=== PATIENT | female | born 1985 | race Hispanic/Latino ===

== ENCOUNTER 2018-09-26 14:58 | Emergency (ER) | payer SELFPAY ==
[~2018-09-26 14:58] MED LIST: CIPR-278 PO
[2018-09-26] MEDS ORDERED: TETANUS/DIPHTHERIA TOXOID [ADULT] 0.5 ML VIAL IM ONE (15:36)
== END 2018-09-26 15:53 | disposition home or self-care (01) ==
LOC: EDH 14:58
DX: S91.331A Puncture wound without foreign body, right foot, initial encounter (principal); E78.5 Hyperlipidemia, unspecified; Z90.49 Acquired absence of other specified parts of digestive tract; Z87.891 Personal history of nicotine dependence; W26.8XXA Contact with other sharp object(s), not elsewhere classified, initial encounter; Y93.89 Activity, other specified; Y92.89 Other specified places as the place of occurrence of the external cause; Y99.8 Other external cause status
CPT/HCPCS: 73630; 90471; 90714

== ENCOUNTER 2024-10-13 12:35 | Emergency (ER) | payer SELFPAY ==
[~2024-10-13] VITALS: Ht 157.5 cm; Wt 133.8 kg
--- NOTE | 2024-10-13 12:45 | NUR ---
PATIENT TO CT ACCOMPANIED BY PRIMARY NURSE
--- NOTE | 2024-10-13 12:55 | NUR ---
PATIENT BACK FROM CT; ACCOMPANIED BY PRIMARY NURSE
[2024-10-13 13:12] LABS: BASOPHILS # (AUTO) 0.02 K/uL (0.00-0.20); BASOPHILS % (AUTO) 0.3 % (0.0-5.0); EOSINOPHILS # (AUTO) 0.05 K/uL (0.00-0.70); EOSINOPHILS % (AUTO) 0.7 % (0.0-8.0); HEMATOCRIT 40.8 % (36-48); IMMATURE GRANULOCYTE ABSOLUTE 0.05 K/uL (0-1); LYMPHOCYTES # (AUTO) 2.8 K/uL (1.0-4.8); LYMPHOCYTES % (AUTO) 40.6 % (21.0-51.0); MEAN CORPUSCULAR HEMOGLOBIN 24.9 pg (27.0-33.0); MEAN CORPUSCULAR HGB CONC 31.9 g/dL (32.0-36.0); MEAN CORPUSCULAR VOLUME 78.2 fL (79-99); MONOCYTES # (AUTO) 0.4 K/uL (0.1-1.0); MONOCYTES % (AUTO) 6.1 % (3.0-13.0); NEUTROPHILS # (AUTO) 3.5 K/uL (1.8-7.7); NEUTROPHILS % (AUTO) 51.6 % (40.0-77.0); PLATELET COUNT (AUTO) 257 K/uL (130-400); RED BLOOD CELL COUNT(AUTO) 5.22 MIL/uL (4.00-5.50); RED CELL DISTRIBUTION WIDTH 14.4 % (11.0-15.5); WHITE BLOOD COUNT (AUTO) 6.9 K/uL (4.8-10.8)
--- NOTE | 2024-10-13 13:19 | HMCIMG ---
Exam Type: CT HEAD/BRAIN W/O CONTRAST Clinical Information: CODE STROKE Comparison: None CT Dose Index (CTDI): 57.33 mGy Dose Length Product (DLP): 956.79 total mGy-cm Findings: The examination is unremarkable. Richardson-white matter junction is preserved. No intra or extra axial lesions or fluid collections are seen. Specifically, richardson and white matter are normal in signal characteristics with normal caliber of ventricles and periventricular cisterns with no evidence of intra or or extra-axial hemorrhage, lacunar infarct, or major territorial infarct, mass, or other abnormality. There are no infarcts. There are no hemorrhages. Periventricular white matter locations are preserved. The orbital contents and structures of the posterior fossa are intact. Impression: Normal CT of the head. This study was performed using dose reduction techniques to include automated exposure control and/or adjustment of the mA and/or kV according to patient size. Report called in to emergency room at 1:15 PM
[2024-10-13 13:20] LABS: CREATININE 0.7 mg/dL (0.5-1.0); POTASSIUM 3.6 mmol/L (3.5-5.1)
[2024-10-13 13:22] LABS: INR 0.97 (0.85-1.15); PROTHROMBIN TIME 10.9 SEC (9.6-11.6)
[2024-10-13 13:23] LABS: PARTIAL THROMBOPLASTIN TIME 31.9 SEC (26.3-35.5)
[2024-10-13 13:37] LABS: B-TYPE NATRIURETIC PEPTIDE 7 pg/mL (0-100)
--- NOTE | 2024-10-13 14:28 | HMCIMG ---
Exam Type: CHEST 1VW Clinical Information: CP Comparison: None Findings: The lungs are clear of infiltrates. The heart is enlarged. Bony and soft tissue structures of the chest wall are unremarkable. IMPRESSION: Cardiomegaly. Clear lungs.
--- NOTE | 2024-10-13 14:41 | ERN ---
ED Note History of Present Illness Stated Complaint: STROKE SYMTOMS Chief Complaint: Stroke Symptoms Dictation: A 39-year-old female patient with a history of hypercholesterolemia arrived at the emergency department via EMS, presenting with a primary complaint of tingling and heaviness in the left side of her face and lower extremities. The onset of her symptoms occurred at 8:00 a.m., during which she experienced numbness in her lips and a sensation of facial drooping. Subsequently, she reported experiencing pressure in her chest and at the back of her head, along with a feeling that her arm was about to give way. She took Tylenol, which provided some relief from the pain; however, she did not feel entirely symptom- free and was concerned about the possibility of having a stroke, prompting her to call 911. Allergies: Coded Allergies: No Known Drug Allergies (Unverified Allergy, Unknown, 10/13/24) Uncoded Allergies: NKA (Allergy, Unknown, 01/28/17) Home Meds Active Scripts Ciprofloxacin HCl (Cipro) 500 Mg Tablet, 500 MG PO BID, #10 TAB Prov:CLAIRE MAHAJAN MD 01/29/17 Past Medical History Past Medical History: High Cholesterol Surgical History: Review of System Dictation REVIEW OF SYSTEMS CONSTITUTIONAL: Pressure and weakness over the left side of the body, Denies fevers, chills, or night sweats. No unintentional weight loss reported. NEUROLOGICAL: Denies headache, amaurosis fugax, motor weakness, sensory deficit, vertigo/spinning sensation, gait abnormalities, or tremors. ENT: Left facial heaviness, tingling sensation over the lips No hearing loss, otalgia, otorrhea, rhinitis, rhinorrhea, hoarseness, or sore throat. CARDIOVASCULAR: Denies any exertional angina, dyspnea on exertion, orthopnea, paroxysmal nocturnal dyspnea, palpitations, life-threatening arrhythmias, claudication. PULMONARY: Denies any shortness of breath, cough, phlegm/sputum, hemoptysis, pleuritic chest pain. SLEEP: Denies morning headaches, daytime somnolence or napping. Denies difficulty falling asleep, staying asleep, waking from sleep. Denies knowledge of snoring. GASTROINTESTINAL: Denies any type of dysphagia to either liquids or solids. Denies nausea, vomiting, pyrosis, early satiety, abdominal pain, diarrhea, constipation, or changes in stool consistency or caliber. Denies coffee-ground emesis, hematemesis, hematochezia, or melanotic stools. GENITOURINARY: Denies frequency, urgency, nocturia, hematuria or incontinence (Storage/Irritative symptoms.) Low urinary stream, straining to void, urinary intermittency or hesitancy, splitting of the voiding stream, terminal dribbling. ENDOCRINOLOGIC: Denies polyuria, polydipsia, polyphagia or heat/cold intolerances. HEMATOLOGIC: Denies thrombophilia/previous clots, or coagulopathy/bleeding disorders. ONCOLOGIC: Denies personal history of malignancy. DERMATOLOGIC: Denies rashes or pruritus. PSYCHIATRIC: Denies any suicidal or homicidal ideation. Denies hallucinations. Initial Vital Sign VS Vital Signs Date Time Temp Pulse Resp B/P (MAP) Pulse Ox O2 Delivery O2 Flow Rate FiO2 10/13/24 12:36 98.1 74 16 145/78 98 Room Air 10/13/24 13:05 0 21 Physical Exam Dictation PHYSICAL EXAM GENERAL APPEARANCE: The patient is awake, alert, and oriented, in no acute cardiopulmonary distress. NEUROLOGICAL: Cranial nerves II-XII grossly intact. Motor is 5/5 in bilateral upper and lower extremities proximal to distal. No sensory deficits. HEENT: Face is symmetric. Pupils are equal and reactive. Extraocular movements are intact. NECK: Supple. No JVD. No thyromegaly. No submental, submandibular, pre- /postauricular, occipital or supraclavicular lymphadenopathy. CHEST: Normal chest expansion. No Telemetry. LUNGS: Absence of any rales, rhonchi or any wheezing. CARDIOVASCULAR: Regular. S1 and S2 normal. No appreciable rubs, murmurs or gallops. ABDOMEN: Soft, nontender, and nondistended. There is no rebound, voluntary guarding, or rigidity. : Deferred. No Alves. EXTREMITIES: Non-edematous and not cyanotic. No clubbing. Good capillary refill. SKIN: No skin breakdown. Results (Laboratory/Radiology) Laboratory/Radiology Laboratory Tests Test 10/13/24 13:01 White Blood Count 6.9 K/uL (4.8-10.8) Red Blood Count 5.22 MIL/uL (4.00-5.50) Hemoglobin 13.0 g/dL (12.0-16.0) Hematocrit 40.8 % (36-48) Mean Corpuscular Volume 78.2 fL (79-99) L Mean Corpuscular Hemoglobin 24.9 pg (27.0-33.0) L Mean Corpuscular Hemoglobin Concent 31.9 g/dL (32.0-36.0) L Red Cell Distribution Width 14.4 % (11.0-15.5) Platelet Count 257 K/uL (130-400) Mean Platelet Volume 9.0 fL (7.5-10.5) Immature Granulocyte % (Auto) 0.7 % (0-1) Neutrophils (%) (Auto) 51.6 % (40.0-77.0) Lymphocytes (%) (Auto) 40.6 % (21.0-51.0) Monocytes (%) (Auto) 6.1 % (3.0-13.0) Eosinophils (%) (Auto) 0.7 % (0.0-8.0) Basophils (%) (Auto) 0.3 % (0.0-5.0) Neutrophils # (Auto) 3.5 K/uL (1.8-7.7) Lymphocytes # (Auto) 2.8 K/uL (1.0-4.8) Monocytes # (Auto) 0.4 K/uL (0.1-1.0) Eosinophils # (Auto) 0.05 K/uL (0.00-0.70) Basophils # (Auto) 0.02 K/uL (0.00-0.20) Absolute Immature Granulocyte (auto 0.05 K/uL (0-1) Nucleated Red Blood Cells 0.0 % (0.0-0.19) Red Blood Cell Morphology See comments Prothrombin Time 10.9 SEC (9.6-11.6) Prothromb Time International Ratio 0.97 (0.85-1.15) Activated Partial Thromboplast Time 31.9 SEC (26.3-35.5) Sodium Level 139 mmol/L (136-145) Potassium Level 3.6 mmol/L (3.5-5.1) Chloride Level 102 mmol/L (101-111) Carbon Dioxide Level 30 mmol/L (21-32) Blood Urea Nitrogen 9 mg/dL (7-18) Creatinine 0.7 mg/dL (0.5-1.0) Glomerular Filtration Rate Calc 112 mL/min (>90) Random Glucose 99 mg/dL (70-105) Total Calcium 8.4 mg/dL (8.5-10.1) L Troponin I High Sensitivity 5 ng/L (4-50) B-Type Natriuretic Peptide 7 pg/mL (0-100) X-RAY Comment: [place] [id number] [id number] IMAGING REPORT Signed PATIENT: SNOW RUEDA MR#: [id number] : 1985 SEX: F AGE: 39 LOCATION: [facility] ORDER [id number] STATUS: REG ER REPORT#: [id number] SERVICE 1257 REASON: CP ORDERING PHYSICIAN: RACHELLE SCHULTZ MD PROCEDURE: CXR1VW - CHEST 1VW Exam Type: CHEST 1VW Clinical Information: CP Comparison: None Findings: The lungs are clear of infiltrates. The heart is enlarged. Bony and soft tissue structures of the chest wall are unremarkable. IMPRESSION: Cardiomegaly. Clear lungs. DICTATED BY: OLVIN TRACEY MD DATE: 10/13/241425 ELECTRONICALLY SIGNED BY: OLVIN TRACEY MD DATE: 10/13/241427 CT Scan Comment: [place] [id number] [id number] IMAGING REPORT Signed PATIENT: SNOW RUEDA MR#: [id number] : 1985 SEX: F AGE: 39 LOCATION: [facility] ORDER [id number] STATUS: REG ER REPORT#: [id number] SERVICE 1240 REASON: CODE STROKE ORDERING PHYSICIAN: RACHELLE SCHULTZ MD PROCEDURE: HEAD WO - CT HEAD/BRAIN W/O CONTRAST Exam Type: CT HEAD/BRAIN W/O CONTRAST Clinical Information: CODE STROKE Comparison: None CT Dose Index (CTDI): 57.33 mGy Dose Length Product (DLP): 956.79 total mGy-cm Findings: The examination is unremarkable. Richardson-white matter junction is preserved. No intra or extra axial lesions or fluid collections are seen. Specifically, richardson and white matter are normal in signal characteristics with normal caliber of ventricles and periventricular cisterns with no evidence of intra or or extra-axial hemorrhage, lacunar infarct, or major territorial infarct, mass, or other abnormality. There are no infarcts. There are no hemorrhages. Periventricular white matter locations are preserved. The orbital contents and structures of the posterior fossa are intact. Impression: Normal CT of the head. This study was performed using dose reduction techniques to include automated exposure control and/or adjustment of the mA and/or kV according to patient size. Report called in to emergency room at 1:15 PM DICTATED BY: OLVIN TRACEY MD DATE: 10/13/24 1315 ELECTRONICALLY SIGNED BY: OLVIN TRACEY MD DATE: 10/13/24 1319 ED Course ED Course Orders Procedure Category Date Status Time Ct Head/Brain W/O CT 10/13/24 Resulted Contrast 12:40 Cbc With Differential LAB 10/13/24 Complete 12:57 Basic Metabolic Panel LAB 10/13/24 Complete 12:57 Pt And Ptt LAB 10/13/24 Complete 12:57 Troponin I High LAB 10/13/24 Complete Sensitivity 12:57 Chest 1vw RAD 10/13/24 Resulted 12:57 B-Type Natriuretic LAB 10/13/24 Complete Peptide 12:57 12 Lead Ekg Tracing- EKG 10/13/24 Logged Technical 13:03 Vital Signs Date Time Temp Pulse Resp B/P (MAP) Pulse Ox O2 Delivery O2 Flow Rate FiO2 10/13/24 13:05 98.4 96 18 137/70 98 Room Air* 0 21 10/13/24 12:36 98.1 74 16 145/78 98 Room Air 14:27 The patient was assessed in Emergency Department room 11. Laboratory tests, including CBC and BMP, returned negative results. A CT scan of the head was unremarkable, and the EKG did not reveal any significant abnormalities. Serial troponin tests were also negative. The chest X-ray indicated clear lung diggs. The patient appears to be comfortable in bed. A comprehensive evaluation for stroke was conducted, yielding negative results. The patient reported experiencing considerable stress and has a panic disorder for which she is not currently receiving medication. At this time, the patient does not require emergency intervention or inpatient care. She can be safely discharged to her home and is advised to follow up with her primary care provider within seven d ays of discharge. Medical Decision Making MDM MDM Differential diagnosis: Panic disorder, acute anxiety episode, stroke-like symptoms, TIA Rationale: Tests considered and ordered secondary to shared decision making include: Previous outside records reviewed: Old ER visits. Risk of complication and/or morbidity or mortality of patient management: None Medications-Per medication reconciliation Need for hospitalization: Patient does not meet criteria for hospitalization. Need for emergency major/minor surgery: No There are no social concerns with this patient. Prescription drug management Prescriptions will include symptomatic care Patient's prior external medical records from other ER visits were reviewed by me as indicated. Prior testing and results from previous visits were reviewed. Prior tests were taken into account with medical decision making and resource utilization, independent historian/historians were used to obtain complete medical history. I independently interpreted the test that were performed, results were reviewed by me and considered findings on radiology if ordered. DX & DISP Disposition: Discharge Departure Impression: Primary Impression: Panic disorder Additional Impressions: Acute anxiety, Stroke-like symptoms, TIA (transient ischemic attack), Hypocalcemia Condition: Stable Additional Instructions: Communicate with your healthcare provider: Openly discuss any concerns, challenges, or changes in your anxiety symptoms with your doctor or therapist. Be patient: Managing anxiety takes time and consistent effort. Seek immediate help: If experiencing a severe anxiety attack, reach out to your healthcare provider or crisis support services. Follow up with the primary care provider within 7 days of the discharge. Visit the nearest emergency department or call 911 should the stroke-like symptoms returns or gets worse. Referrals: KATERIN GREER (PCP) I have reviewed, & agreed with my scribe's, documentation. I have reviewed the case, and I agree with, Diagnosis and Plan I have examined patient JOSE MARTIN MARSHALL MD Oct 13, 2024 14:41
[2024-10-13 15:33] VITALS: BP 145/68; PULSE 94; RESP 20; TEMP 98.3; O2SAT 99
--- NOTE | 2024-10-13 17:25 | EKG ---
[facility] Test Date: 2024-10-13 Test Time: 13:27:41 Pat Name: SNOW RUEDA Department: ED Room: Gender: F [employer]: [facility] : 1985 Requested By: RACHELLE MELGAR Order Number: [id number] Reading MD: Aaron Rees Measurements Intervals [place] Rate: 69 P: 16 WI: 149 QRS: 5 QRSD: 101 T: 82 QT: 394 QTc: 422 Interpretive Statements Sinus rhythm Compared to ECG 11/03/2015 22:25:19 No significant changes Electronically Signed On 10-13-2024 17:40:54 INSEAM LEVELER by Aaron Rees Please click the below link to view image of tracing.
== END 2024-10-13 15:53 | disposition home or self-care (01) ==
LOC: EDH 12:35
DX: F41.0 Panic disorder [episodic paroxysmal anxiety] (principal); G45.9 Transient cerebral ischemic attack, unspecified; E83.51 Hypocalcemia; E78.00 Pure hypercholesterolemia, unspecified
CPT/HCPCS: 36415; 70450; 71045; 80048; 83880; 84484; 85025; 85610; 85730; 93005; 99285

== ENCOUNTER 2025-01-29 10:01 | Emergency (ER) | payer SELFPAY ==
[~2025-01-29] VITALS: Ht 160 cm; Wt 113.4 kg
[2025-01-29 11:39] LABS: HEMATOCRIT 39.9 % (36-48); MEAN CORPUSCULAR HEMOGLOBIN 24.9 pg (27.0-33.0); MEAN CORPUSCULAR HGB CONC 31.8 g/dL (32.0-36.0); MEAN CORPUSCULAR VOLUME 78.1 fL (79-99); PLATELET COUNT (AUTO) 253 K/uL (130-400); RED BLOOD CELL COUNT(AUTO) 5.11 MIL/uL (4.00-5.50); RED CELL DISTRIBUTION WIDTH 14.6 % (11.0-15.5)
--- NOTE | 2025-01-29 11:49 | ERN ---
ED Note History of Present Illness Stated Complaint: NAUSEA Chief Complaint: Nausea,Vomiting,Diarrhea Time Seen by MD: 10:20 Time Seen by Midlevel: 10:22 Dictation: 39-year-old female with a history of cholesterol coming in with complaints of feeling , nausea . Patient states yesterday she went to eat at a [place] restaurant had some pancakes in her symptoms started after. Denies any emesis, diarrhea or abdominal pain. Allergies: Coded Allergies: No Known Drug Allergies (Unverified Allergy, Unknown, 10/13/24) Uncoded Allergies: NKA (Allergy, Unknown, 01/28/17) Home Meds Active Scripts Ondansetron (Ondansetron Odt) 4 Mg Tab.rapdis, 4 MG PO Q6HPRN PRN for nausea for 3 Days, #12 TAB 0 Refills Prov:MAYE POPE NP 01/29/25 Ciprofloxacin HCl (Cipro) 500 Mg Tablet, 500 MG PO BID, #10 TAB Prov:CLAIRE MAHAJAN MD 01/29/17 Past Medical History Past Medical History: High Cholesterol Surgical History: LMP: January 23, 2025 Review of System Dictation Constitutional: Negative for fever,chills, and weight loss Eyes: Negative for injury, pain,redness, and discharge ENT: Negative for injury,pain or swelling Cardiovascular: Negative for chest pain, palpitations, and edema Respiratory: Negative for shortness of breath, cough, and wheezing, Abdomen/GI: Negative for abdominal pain, positive nausea, no vomiting, no diarrhea, and no constipation Back: Negative for injury and pain : Negative for injury, bleeding and discharge MS/Extremity: Negative for injury and deformity Skin: Negative for rash, and discoloration Neuro: Negative for headache, weakness, numbness, tingling, and seizure Psych: Negative for suicide ideation, homicidal ideation, and hallucinations Review of Systems: was completed Initial Vital Sign VS Vital Signs Date Time Temp Pulse Resp B/P (MAP) Pulse Ox O2 Delivery O2 Flow Rate FiO2 01/29/25 10:03 98.1 79 16 134/93 97 Room Air 0 01/29/25 12:47 21 Physical Exam Dictation General: awake, alert, NAD Head/Face: Normocephalic, atraumatic Eyes: PERRL, EOMI, vision at baseline ENT: oral cavity clear, TMs clear, no signs of infection Neck: Trachea midline, supple, no nuchal rigidity Cardiovascular: RRR, normal S1/S2, No MRGs, no JVD Respiratory: CTAB, no respiratory distress, No rales or wheezes Abdomen: Soft, non-tender, non-distended, normal bowel sounds, no guarding or rebound. Skin: Warm, dry, normal turgor, no rash MS/Extremity: Pulses equal, no cyanosis, neurovascular intact, FROM Neuro: COAx4, GCS 15, strength 5/5, CN 2-12 intact, normal cerebellar exam, normal gait, Psych: Normal behavior, mood, and affect normal Results (Laboratory/Radiology) Laboratory/Radiology Laboratory Tests Test 01/29/25 11:07 01/29/25 11:23 Urine Color LIGHT-YELLOW (YELLOW) Urine Appearance CLEAR (CLEAR) Urine pH 5.5 (5.0-8.0) Urine Specific [place] 1.019 (1.001-1.031) Urine Protein NEGATIVE mg/dL (NEGATIVE) Urine Glucose (UA) NEGATIVE mg/dL (NEGATIVE) Urine Ketones NEGATIVE mg/dL (NEGATIVE) Urine Occult Blood MODERATE (NEGATIVE) H Urine Nitrate NEGATIVE (NEGATIVE) Urine Bilirubin NEGATIVE mg/dL (NEGATIVE) Urine Urobilinogen 0.2 mg/dL (0.2-1.0) Urine Leukocyte Esterase NEGATIVE Tony/uL Urine RBC 51-100 /HPF (0-1) H Urine WBC 2-5 /HPF (0-1) H Urine Squamous Epithelial Cells FEW /HPF (0-2) Urine Bacteria None /HPF (None Seen) Urine HCG, Qualitative NEGATIVE (NEGATIVE) White Blood Count 6.0 K/uL (4.8-10.8) Red Blood Count 5.11 MIL/uL (4.00-5.50) Hemoglobin 12.7 g/dL (12.0-16.0) Hematocrit 39.9 % (36-48) Mean Corpuscular Volume 78.1 fL (79-99) L Mean Corpuscular Hemoglobin 24.9 pg (27.0-33.0) L Mean Corpuscular Hemoglobin Concent 31.8 g/dL (32.0-36.0) L Red Cell Distribution Width 14.6 % (11.0-15.5) Platelet Count 253 K/uL (130-400) Mean Platelet Volume 8.9 fL (7.5-10.5) Nucleated Red Blood Cells 0.0 % (0.0-0.19) Red Blood Cell Morphology See comments Sodium Level 144 mmol/L (136-145) Potassium Level 4.2 mmol/L (3.5-5.1) Chloride Level 107 mmol/L (101-111) Carbon Dioxide Level 28 mmol/L (21-32) Blood Urea Nitrogen 8 mg/dL (7-18) Creatinine 0.7 mg/dL (0.5-1.0) Glomerular Filtration Rate Calc 112 mL/min (>90) Random Glucose 108 mg/dL (70-105) H Total Calcium 8.5 mg/dL (8.5-10.1) Total Bilirubin 0.8 mg/dL (0.2-1.0) Direct Bilirubin 0.1 mg/dL (0.0-0.3) Aspartate Amino Transf (AST/SGOT) 12 U/L (10-37) Alanine Aminotransferase (ALT/SGPT) 14 U/L (12-78) Alkaline Phosphatase 93 U/L (50-136) Total Protein 7.5 g/dL (6.0-8.3) Albumin 3.4 g/dL (3.5-5.0) L Lipase 27 U/L (16-77) Labs Reviewed?: Yes ED Course ED Course Orders Procedure Category Date Status Time Urinalysis Profile LAB 01/29/25 Complete 11:05 ,Urine Test LAB 01/29/25 Complete 11:05 Cbc Without LAB 01/29/25 Complete Differential 11:05 Basic Metabolic Panel LAB 01/29/25 Complete 11:05 Lipase LAB 01/29/25 Complete 11:05 Hepatic Function Panel LAB 01/29/25 Complete 11:05 Ondansetron Odt 4mg PHA 01/29/25 Complete Tab (Zofran 4mg Odt) 11:05 Current Medications Medications (Trade) Dose Ordered Sig/Chhaya Route PRN Reason Start Time Stop Time Status Last Admin Dose Admin Ondansetron HCl (zoFRAN 4MG ODT) 4 mg ONCE STAT SL 01/29/25 11:05 01/29/25 11:07 DC 01/29/25 11:53 Vital Signs Date Time Temp Pulse Resp B/P (MAP) Pulse Ox O2 Delivery O2 Flow Rate FiO2 01/29/25 12:47 98.1 76 16 127/89 98 Room Air* 0 21 01/29/25 10:03 98.1 79 16 134/93 97 Room Air 0 Medical Decision Making MDM MDM: 39-year-old female with a history of cholesterol coming in with complaints of feeling , nausea . Patient states yesterday she went to eat at a [place] restaurant had some pancakes in her symptoms started after. Denies any emesis, diarrhea or abdominal pain.CBC shows no leukocytosis, no anemia, no thrombocytopenia. CBC unremarkable. Chemistry unremarkable. No transaminitis, lipase normal. Discussed with the patient findings educated she needs to follow up with PCP in 1-2 days, return to the hospital as needed. We will prescribe patient antiemetic. Educated to start a bland diet for the next couple of days. Patient verbalized understanding, answered all questions. Differential diagnosis: Gastroenteritis, pancreatitis, Rationale: Tests considered and ordered secondary to shared decision making include: Previous outside records reviewed: Old ER visits. Risk of complication and/or morbidity or mortality of patient management: None Medications-Per medication reconciliation Need for hospitalization: Patient does not meet criteria for hospitalization. Need for emergency major/minor surgery: No There are no social concerns with this patient. Prescription drug management Prescriptions will include symptomatic care Patient's prior external medical records from other ER visits were reviewed by me as indicated. Prior testing and results from previous visits were reviewed. Prior tests were taken into account with medical decision making and resource ut ilization, independent historian/historians were used to obtain complete medical history. I independently interpreted the test that were performed, results were reviewed by me and considered findings on radiology if ordered. Medical management and examination interpretation discussions were had by me with other qualified healthcare professionals as indicated for the patient's car e. DX & DISP Disposition: Discharge Departure Impression: Primary Impression: Nausea Condition: Stable Scripts Ondansetron (Ondansetron Odt) 4 Mg Tab.rapdis 4 MG PO Q6HPRN PRN for nausea for 3 Days, #12 TAB 0 Refills Prov: MAYE POPE ROOF FITTER 01/29/25 Additional Instructions: Take medication for nausea as needed. Avoid any spicy, greasy, fried, or fatty foods. Start off with a bland diet. Return to the hospital if you have any worsening symptoms. Otherwise follow up with your primary doctor. Referrals: KATERIN GREER (PCP) Time of Disposition: 12:35 I have reviewed the case, and I agree with, Diagnosis and Plan I performed the substantive portion of the visit. I have reviewed and personally made and approve the management plan that is documented in the notes by myself or the HIGINIO. I acknowledge full responsibility for the patient's management plan. MAYE POPE NP January 29, 2025 11:49 REBECA DOLL MD January 29, 2025 18:16
[2025-01-29 11:50] LABS: CREATININE 0.7 mg/dL (0.5-1.0); POTASSIUM 4.2 mmol/L (3.5-5.1)
[2025-01-29] MEDS: ondanSETRON ODT 4MG TAB SL STA (11:53)
[2025-01-29 11:54] LABS: ALBUMIN 3.4 g/dL (3.5-5.0); BILIRUBIN,DIRECT 0.1 mg/dL (0.0-0.3); BILIRUBIN,TOTAL 0.8 mg/dL (0.2-1.0); TOTAL PROTEIN, SERUM 7.5 g/dL (6.0-8.3)
[2025-01-29 11:57] LABS: APPEARANCE,URINE CLEAR (CLEAR); BILIRUBIN,URINE NEGATIVE (NEGATIVE); COLOR,URINE LIGHT-YELLOW (YELLOW); GLUCOSE, URINE (UA) NEGATIVE (NEGATIVE); KETONES,URINE NEGATIVE (NEGATIVE); LEUKOCYTE ESTERASE ,URINE NEGATIVE Leu/uL (NEGATIVE); NITRATE,URINE NEGATIVE (NEGATIVE); OCCULT BLOOD,URINE MODERATE (NEGATIVE); PH,URINE 5.5 (5.0-8.0); PROTEIN,URINE NEGATIVE (NEGATIVE); UROBILINOGEN,URINE 0.2 mg/dL (0.2-1.0)
[2025-01-29 11:58] LABS: HCG,QUALITATIVE URINE NEGATIVE (NEGATIVE)
[2025-01-29 12:01] LABS: ADD UA MICROSCOPIC YES
[2025-01-29 12:08] LABS: RBC,URINE 51-100 /HPF (0-1); SQUAMOUS EPITHELIAL CELL,UR FEW /HPF (0-2)
[2025-01-29] MEDS ORDERED: ONDA-243 PO (12:35)
[2025-01-29 12:47] VITALS: BP 127/89; PULSE 76; RESP 16; TEMP 98; O2SAT 98
== END 2025-01-29 12:50 | disposition home or self-care (01) ==
LOC: EDH 10:01
DX: R11.2 Nausea with vomiting, unspecified (principal); E78.00 Pure hypercholesterolemia, unspecified; Z79.899 Other long term (current) drug therapy
CPT/HCPCS: 36415; 80048; 80076; 81001; 81025; 83690; 85027; 99283